=== PATIENT | male | born 1990 | race Asian ===

== ENCOUNTER → 2022-02-17 | Outpatient (CLI) | payer OTHER ==
[2022-02-17 17:28] LABS: COVID AG,FIA SOURCE NASOPHARYNGEAL
== END | disposition home or self-care (01) ==
LOC: LABMN 13:45
PROVIDERS: ATTEND Internal Medicine
DX: Z20.822 Contact with and (suspected) exposure to COVID-19 (principal)
CPT/HCPCS: U0003

== ENCOUNTER 2022-03-17 11:15 | Emergency (ER) | payer OTHER ==
[~2022-03-17] VITALS: Ht 180.3 cm; Wt 82.7 kg
[2022-03-17 14:03] VITALS: BP 129/83
== END 2022-03-17 14:07 | disposition home or self-care (01) ==
LOC: EMS 11:15
DX: S90.112A Contusion of left great toe without damage to nail, initial encounter (principal); W04.XXXA Fall while being carried or supported by other persons, initial encounter; Y93.89 Activity, other specified; Y92.532 Urgent care center as the place of occurrence of the external cause; Y99.0 Civilian activity done for income or pay
CPT/HCPCS: 99283

== ENCOUNTER 2022-10-24 15:07 | Emergency (ER) | payer OTHER ==
[~2022-10-24] VITALS: Ht 180.3 cm; Wt 82.7 kg
[2022-10-24] MEDS ORDERED: IBUPROFEN 600 MG TABLET PO ONE (16:30)
[2022-10-24 18:22] VITALS: BP 126/82
== END 2022-10-24 18:24 | disposition home or self-care (01) ==
LOC: EMS 15:07
DX: S96.911A Strain of unspecified muscle and tendon at ankle and foot level, right foot, initial encounter (principal); X58.XXXA Exposure to other specified factors, initial encounter; Y93.01 Activity, walking, marching and hiking; Y92.89 Other specified places as the place of occurrence of the external cause; Y99.8 Other external cause status
CPT/HCPCS: 29540; 99283

== ENCOUNTER 2022-12-26 15:19 | Emergency (ER) | payer OTHER ==
[~2022-12-26] VITALS: Ht 180.3 cm; Wt 90.0 kg
[2022-12-26 15:22] VITALS: BP 147/106; PULSE 81; RESP 18; TEMP 97.6
[2022-12-26] MEDS ORDERED: HYDROGEN PEROXIDE 118 ML SOLUTION TP ONE (15:45)
== END 2022-12-26 16:28 | disposition home or self-care (01) ==
LOC: EMS 15:19
DX: S50.811A Abrasion of right forearm, initial encounter (principal); S51.851A Open bite of right forearm, initial encounter; W50.3XXA Accidental bite by another person, initial encounter; Y93.89 Activity, other specified; Y92.89 Other specified places as the place of occurrence of the external cause; Y99.8 Other external cause status
CPT/HCPCS: 99282; Z7502; Z7610

== ENCOUNTER 2023-11-26 18:49 | Emergency (ER) | payer OTHER ==
[~2023-11-26] VITALS: Ht 180.3 cm; Wt 88.6 kg
[2023-11-26 18:49] VITALS: BP 139/97; PULSE 94; RESP 18; TEMP 98.2
== END 2023-11-26 20:03 | disposition home or self-care (01) ==
LOC: EMS 18:49
DX: M76.61 Achilles tendinitis, right leg (principal)
CPT/HCPCS: 99281; Z7502

== ENCOUNTER 2024-08-02 23:38 | Emergency (ER) | payer OTHER ==
[~2024-08-02] VITALS: Ht 180.3 cm; Wt 86.4 kg
[2024-08-02 23:44] VITALS: BP 120/86; PULSE 92; RESP 15; TEMP 98; O2SAT 100
[2024-08-04 08:07] LABS: HEPATITIS C AB (EIA) Non Reactive (Non Reactive)
== END 2024-08-03 02:33 | disposition home or self-care (01) ==
LOC: EMS 23:40
DX: Z77.21 Contact with and (suspected) exposure to potentially hazardous body fluids (principal); X58.XXXA Exposure to other specified factors, initial encounter; Y93.89 Activity, other specified; Y92.89 Other specified places as the place of occurrence of the external cause; Y99.0 Civilian activity done for income or pay
CPT/HCPCS: 86706; 86803; 99283

== ENCOUNTER 2025-04-13 02:30 | Emergency (ER) | payer BC, OTHER ==
[~2025-04-13] VITALS: Ht 180.3 cm; Wt 88.6 kg
[2025-04-13 02:57] LABS: COVID AG,FIA SOURCE NASAL SWAB
[2025-04-13 03:14] LABS: SARS-COV2 (COVID) ANTIGEN,FIA Negative (Negative)
[2025-04-13 03:15] LABS: INFLUENZA TYPE A NEGATIVE FOR TYPE A (NEGATIVE); INFLUENZA TYPE B NEGATIVE FOR TYPE B (NEGATIVE); RAPID GROUP A STREP PRELIM. NEGATIVE (NEGATIVE)
[2025-04-13] MEDS: SODIUM CHLORIDE 0.9% 1,000 ML IV ONE (03:30)
[2025-04-13] MEDS ORDERED: VALA100026 PO (04:46)
[2025-04-13 04:56] VITALS: BP 133/91; PULSE 82; RESP 18; TEMP 98.6; O2SAT 100
== END 2025-04-13 04:59 | disposition home or self-care (01) ==
LOC: EMS 02:31
DX: B00.2 Herpesviral gingivostomatitis and pharyngotonsillitis (principal); Z20.822 Contact with and (suspected) exposure to COVID-19
CPT/HCPCS: 99283; 96360; 87426; 87081; 87430; 87804; J7030